=== PATIENT | male | born 1990 | race African-American/Black ===

== ENCOUNTER 2017-01-14 14:34 | Inpatient (IN) | payer SELFPAY ==
[2017-01-14] MEDS ORDERED: Fentanyl 100 MCG/2 ML VIAL ONE ×2 (14:50→15:45)
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
[2017-01-14] MEDS ORDERED: Promethazine HCl 25 MG/ML VIAL IM PRN (17:04)
[2017-01-14] MEDS ORDERED: Dextrose 50% Abboject 50 ML SYRINGE SLOW IVP PRN (17:04)
[2017-01-14] MEDS ORDERED: Dextrose 5% in Water 1,000 ML IV PRN (17:04)
[2017-01-14] MEDS ORDERED: Ondansetron HCl/PF 4 MG/2 ML Vial IVP PRN (17:04)
[2017-01-14] MEDS ORDERED: Ondansetron ODT 4 MG TAB PO PRN (17:04)
[2017-01-14] MEDS ORDERED: HYDROcodone/Acetaminophen 10/325 mg Tablet PO PRN (17:04)
[2017-01-14 17:34] LABS: Hematocrit 45.4 % (42.0-52.0)
[2017-01-14] MEDS: Sodium Chloride 0.9% 1,000 ML IV SCH (18:07)
[2017-01-14] MEDS: HYDROcodone/Acetaminophen 10/325 mg Tablet PO PRN (20:02)
[2017-01-14] MEDS ORDERED: traMADol HCl 50 MG TAB PO PRN (20:40)
[2017-01-14] MEDS: Famotidine 20 MG TAB PO SCH (21:07)
[2017-01-14 23:01] LABS: Hematocrit 41.8 % (42.0-52.0)
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
[2017-01-15] MEDS: Sodium Chloride 0.9% 1,000 ML IV SCH (01:38)
[2017-01-15] MEDS: HYDROcodone/Acetaminophen 10/325 mg Tablet PO PRN ×3 (04:02→20:42)
[2017-01-15 05:59] LABS: Hematocrit 39.9 % (42.0-52.0)
[2017-01-15 06:00] LABS: #Eosinphils 0.1 thou/uL (0.0-0.7); #Lymphocytes 1.9 thou/uL (1.20-3.40); #Monocytes 0.8 thou/uL (0.11-0.59); #Neutrophils 5.6 thou/uL (1.40-6.50); %Basophils 0.1 % (0.0-1.0); %Eosinophils 1.6 % (0.0-10.0); %Monocytes 9.1 % (0.0-10.0); Hematocrit 40.1 % (42.0-52.0); Mean Platelet Volume 7.6 fL (7.4-10.4); White Blood Cell (WBC) Count 8.4 thou/uL (4.8-10.8)
[2017-01-15 06:22] LABS: Anion Gap 8 mmol/L (10-20); BUN (Urea Nitrogen) 17 mg/dL (8.9-20.6); Calc. Creatinine Clearance 109 mL/min (70-130); Calcium 8.4 mg/dL (7.8-10.44); Carbon Dioxide 27 mmol/L (22-29); Chloride 109 mmol/L (98-107); Estimated GFR-MDRD Greater than 90
[2017-01-15] MEDS: traMADol HCl 50 MG TAB PO PRN (08:52)
[2017-01-15] MEDS: Famotidine 20 MG TAB PO SCH ×2 (08:52→20:41)
[2017-01-15 11:35] LABS: Hematocrit 38.8 % (42.0-52.0)
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
[2017-01-16] MEDS: HYDROcodone/Acetaminophen 10/325 mg Tablet PO PRN (03:11)
[2017-01-16] MEDS: traMADol HCl 50 MG TAB PO PRN (09:08)
[2017-01-16] MEDS: Famotidine 20 MG TAB PO SCH ×2 (10:31→21:17)
[2017-01-16] MEDS ORDERED: HYDROcodone/Acetaminophen 10/325 mg Tablet PO PRN (11:39)
[2017-01-16] MEDS: traMADol HCl 50 MG TAB PO SCH ×2 (12:55→19:52)
[2017-01-16] MEDS: Ibuprofen 600 MG TAB PO SCH ×2 (14:06→19:51)
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
[2017-01-17 02:00] VITALS: BMI 26.1
[2017-01-17] MEDS: Ibuprofen 600 MG TAB PO SCH ×4 (02:26→19:53)
[2017-01-17] MEDS: traMADol HCl 50 MG TAB PO SCH ×4 (02:26→19:54)
[2017-01-17] MEDS: Famotidine 20 MG TAB PO SCH ×2 (08:08→19:53)
[2017-01-17] MEDS ORDERED: Cyclobenzaprine 10 MG TAB PO PRN (09:50)
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
[2017-01-17] MEDS: Gabapentin 100 MG CAP PO SCH (19:54)
[2017-01-17] MEDS: Enoxaparin Sodium 30 MG/0.3 ML SYRINGE SC SCH (19:54)
[2017-01-18] MEDS: Ibuprofen 600 MG TAB PO SCH ×4 (02:10→21:52)
[2017-01-18] MEDS: traMADol HCl 50 MG TAB PO SCH ×4 (02:10→21:53)
[2017-01-18] MEDS: HYDROcodone/Acetaminophen 10/325 mg Tablet PO PRN ×2 (05:43→10:52)
[2017-01-18] MEDS: Senokot S 8.6-50 MG TAB PO SCH ×2 (08:21→21:57)
[2017-01-18] MEDS: Polyethylene Glycol 3350 17 GM Packet PO SCH (08:22)
[2017-01-18] MEDS: Gabapentin 100 MG CAP PO SCH ×2 (08:22→21:56)
[2017-01-18] MEDS: Famotidine 20 MG TAB PO SCH ×2 (08:22→21:56)
[2017-01-18] MEDS: Enoxaparin Sodium 30 MG/0.3 ML SYRINGE SC SCH ×2 (08:23→21:57)
[2017-01-18] MEDS: Bisacodyl 10 MG SUPP PR SCH ×2 (08:29→08:31)
[2017-01-18] MEDS ORDERED: Magnesium Citrate 300 ML BOT PO SCH (09:00)
[2017-01-18] MEDS ORDERED: Sulfameth/Trimethoprim DS 800-160mg TAB PO SCH (12:00)
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
[2017-01-18] MEDS: Bethanechol Chloride 10 MG TAB PO SCH (21:56)
[2017-01-19] MEDS: traMADol HCl 50 MG TAB PO SCH ×2 (02:25→15:42)
[2017-01-19] MEDS: Ibuprofen 600 MG TAB PO SCH ×2 (02:25→15:42)
[2017-01-19] MEDS: Bethanechol Chloride 10 MG TAB PO SCH (06:24)
[2017-01-19] MEDS ORDERED: Bisacodyl 10 MG SUPP PR SCH (08:22)
[2017-01-19] MEDS ORDERED: traMADol HCl 50 MG TAB PO PRN (08:26)
[2017-01-19] MEDS: Gabapentin 100 MG CAP PO SCH (10:50)
[2017-01-19] MEDS: Acetaminophen 500 MG TAB PO SCH ×2 (10:50→15:43)
[2017-01-19] MEDS: Polyethylene Glycol 3350 17 GM Packet PO SCH (10:51)
[2017-01-19] MEDS: Senokot S 8.6-50 MG TAB PO SCH (10:51)
[2017-01-19] MEDS: Enoxaparin Sodium 30 MG/0.3 ML SYRINGE SC SCH (10:52)
[2017-01-19] MEDS ORDERED: traMADol HCl 50 MG TAB PO SCH (12:00)
[2017-01-19] MEDS ORDERED: Ibuprofen 600 MG TAB PO SCH (12:00)
[2017-01-19 15:13] VITALS: BP 120/68; TEMP 97.5
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
== END 2017-01-19 15:14 | disposition home or self-care (01) | DRG 536 ==
LOC: ERS 14:34 → SURG B 15:33
PROVIDERS: ADMIT Specialist; ATTEND Specialist
DX: S32.82XA Multiple fractures of pelvis without disruption of pelvic ring, initial encounter for closed fracture (principal); N17.9 Acute kidney failure, unspecified; S32.10XA Unspecified fracture of sacrum, initial encounter for closed fracture; N32.89 Other specified disorders of bladder; G89.11 Acute pain due to trauma; V43.62XA Car passenger injured in collision with other type car in traffic accident, initial encounter; F19.10 Other psychoactive substance abuse, uncomplicated; F17.210 Nicotine dependence, cigarettes, uncomplicated
CPT/HCPCS: 36415; 72170; 80048; 85014; 85018; 85025; 87086; 96361; 96374; 96376; G8978-GP-CL; G8979-GP-CI; G8987-GO-CK; G8988-GO-CI; J1650; J2270; J3010

== ENCOUNTER 2018-12-31 05:32 | Emergency (ER) | payer OTHER, SELFPAY ==
[2018-12-31] MEDS ORDERED: Bacitracin 1 PK ONE (06:15)
--- NOTE | 2018-12-31 07:39 | RAD ---
EXAM: XR Hand Rt 3 View STANDARD PROVIDED CLINICAL HISTORY: Pain COMPARISON: None FINDINGS: Comminuted, apex dorsally angulated fracture involving fifth metacarpal neck. No additional fracture is evident. IMPRESSION: As above.
== END 2018-12-31 06:46 ==
LOC: ERS 05:32
DX: S62.336A Displaced fracture of neck of fifth metacarpal bone, right hand, initial encounter for closed fracture (principal); S61.411A Laceration without foreign body of right hand, initial encounter; F17.210 Nicotine dependence, cigarettes, uncomplicated; W18.30XA Fall on same level, unspecified, initial encounter
CPT/HCPCS: 12001; 26600